=== PATIENT | male | born 1955 | race Two or more races ===

== ENCOUNTER 2020-10-09 08:48 | Emergency (ER) | payer MEDICAID, OTHER ==
[~2020-10-09] VITALS: Ht 177.8 cm; Wt 79.4 kg
[2020-10-09 08:58] VITALS: BP 139/94
[2020-10-09] MEDS ORDERED: KETOROLAC TROMETH 60MG/2ML VIAL IM ONE (10:30)
[2020-10-09] MEDS ORDERED: HYDROcodone-ACET 5/325MG TAB PO ONE (10:30)
== END 2020-10-09 11:03 | disposition home or self-care (01) ==
LOC: ER 08:48
DX: M51.16 Intervertebral disc disorders with radiculopathy, lumbar region (principal); F17.210 Nicotine dependence, cigarettes, uncomplicated; X50.1XXA Overexertion from prolonged static or awkward postures, initial encounter; Y93.89 Activity, other specified; Y92.89 Other specified places as the place of occurrence of the external cause; Y99.8 Other external cause status
CPT/HCPCS: 72100; 96372; 99283; J1885

== ENCOUNTER 2021-07-16 08:41 | Emergency (ER) | payer MEDICAID ==
[~2021-07-16] VITALS: Ht 177.8 cm; Wt 79.4 kg
[2021-07-16 08:44] VITALS: BP 104/81
[2021-07-16] MEDS ORDERED: KETOROLAC TROMETH 60MG/2ML VIAL IM ONE (09:30)
[2021-07-16] MEDS ORDERED: methylPREDNISolone SOD SUCC 125 MG/2 ML VL IM ONE (09:30)
[2021-07-16] MEDS ORDERED: INDO50CA82 PO (09:47)
[2021-07-16] MEDS ORDERED: COLC1CAP PO (09:47)
== END 2021-07-16 10:09 | disposition home or self-care (01) ==
LOC: ER 08:41
DX: M10.9 Gout, unspecified (principal); I10 Essential (primary) hypertension; F17.210 Nicotine dependence, cigarettes, uncomplicated
CPT/HCPCS: 96372; 99284; J1885; J2930

== ENCOUNTER 2021-08-07 07:44 | Emergency (ER) | payer MEDICAID ==
[~2021-08-07] VITALS: Ht 177.8 cm; Wt 81.6 kg
[~2021-08-07 07:44] MED LIST: COLC1CAP PO; INDO50CA82 PO
[2021-08-07 08:16] VITALS: BP 118/63
[2021-08-07] MEDS ORDERED: KETOROLAC TROMETH 60MG/2ML VIAL IM ONE (09:00)
[2021-08-07] MEDS ORDERED: methylPREDNISolone SOD SUCC 125 MG/2 ML VL IM ONE (09:00)
[2021-08-07] MEDS ORDERED: INDO50SU PO (09:28)
[2021-08-07] MEDS ORDERED: COLC1CAP PO (09:28)
== END 2021-08-07 09:32 | disposition home or self-care (01) ==
LOC: ER 07:44
DX: M10.9 Gout, unspecified (principal); I10 Essential (primary) hypertension; F17.210 Nicotine dependence, cigarettes, uncomplicated; Z79.899 Other long term (current) drug therapy
CPT/HCPCS: 96372; 99284; J1885; J2930

== ENCOUNTER 2021-09-06 07:56 | Emergency (ER) | payer MEDICAID ==
[~2021-09-06] VITALS: Ht 177.8 cm; Wt 81.6 kg
[~2021-09-06 07:56] MED LIST changes: +INDO50SU PO
[2021-09-06 10:27] VITALS: BP 125/80
[2021-09-06] MEDS ORDERED: PRED30TA4 PO (10:42)
[2021-09-06] MEDS ORDERED: INDO50CA82 PO (10:42)
[2021-09-06] MEDS ORDERED: methylPREDNISolone SOD SUCC 125 MG/2 ML VL IM ONE (10:45)
[2021-09-06] MEDS ORDERED: KETOROLAC TROMETH 60MG/2ML VIAL IM ONE (10:45)
== END 2021-09-06 11:02 | disposition home or self-care (01) ==
LOC: ER 07:56
DX: M10.9 Gout, unspecified (principal); F10.10 Alcohol abuse, uncomplicated; I10 Essential (primary) hypertension; F17.210 Nicotine dependence, cigarettes, uncomplicated; F12.10 Cannabis abuse, uncomplicated
CPT/HCPCS: 96372; 99284; J1885; J2930